=== PATIENT | female | born 1985 | race Caucasian/White ===

== ENCOUNTER 2019-02-06 08:38 | Emergency (ER) | payer BC ==
--- NOTE | 2019-02-06 09:07 | EDM.PDOC ---
ED HPI GENERAL MEDICAL PROBLEM - General Chief Complaint: Syncope Stated Complaint: SYNCOPE Time Seen by Provider: 02/06/19 08:40 Source of Information: Reports: Patient History Limitations: Reports: No Limitations - History of Present Illness INITIAL COMMENTS - FREE TEXT/NARRATIVE: 33 YO WF presents to ER complaining of syncopal episode which occurred this am. Pt reports she woke feeling drowsy and took her dog out for a walk. Pt states she began to feel nauseated and felt like she was gonna have a bowel movement at which time she went to the bathroom and passed out. Pt was found by her friend who called EMS. Pt reports she had a similar episode 2 weeks ago with some amnesia. Pt has long standing history of bipolar, anxiety and IBS and was recently started on Seroquel. Pt also takes Lamictal, Benadryl for sleep and Ativan for anxiety. Pt reports she has felt more dizzy/lightheaded since starting Seroquel. Pt denies shortness of breath, chest pain, diaphoresis, vomiting or fever/chills. Pt reports she has a mild frontal headache which began last night before bedtime. Onset: Today Onset Date: 02/06/19 Onset Time: 06:00 Duration: Constant, Improving, Waxing/Waning Location: Reports: Head, Generalized Quality: Reports: Ache Severity: Mild Improves with: Reports: None Worsens with: Reports: None Associated Symptoms: Reports: No Other Symptoms, Headaches, Nausea/Vomiting, Syncope, Weakness. Denies: Confusion, Chest Pain, Cough, cough w sputum, Fever/ Chills, Rash, Shortness of Breath head frontal Pain Score (Numeric/FACES): 4 - Related Data Allergies Allergy/AdvReac Type Severity Reaction Status Date / Time No Known Allergies Allergy Verified 02/06/19 09:27 Home Meds: Home Meds Fluticasone Propionate [Flonase] 1 - 2 sprays NS DAILY 02/06/19 [History] Levonorgestrel-Ethin Estradiol [Aviane] 1 tab PO DAILY 02/06/19 [History] Loperamide HCl [Imodium A-D] 2 mg PO BID PRN 02/06/19 [History] Multivitamins with Iron [Daily Finn with Iron] 1 each PO DAILY 02/06/19 [History ] QUEtiapine Fumarate [Quetiapine Fumarate] 50 mg PO BEDTIME 02/06/19 [History] RX: Loratadine 10 mg PO DAILY 02/06/19 [History] RX: Naproxen 375 mg PO BID PRN 02/06/19 [History] Rizatriptan Benzoate [Rizatriptan] 10 mg PO DAILY PRN 02/06/19 [History] hydrOXYzine HCl [Atarax] 25 mg PO BID PRN 02/06/19 [History] lamoTRIgine [Lamotrigine] 200 mg PO BEDTIME 02/06/19 [History] ED ROS GENERAL - Review of Systems Review Of Systems: See Below Constitutional: Reports: Malaise, Weakness HEENT: Reports: Vision Change Respiratory: Reports: No Symptoms Cardiovascular: Reports: No Symptoms Endocrine: Reports: No Symptoms GI/Abdominal: Reports: Nausea : Reports: No Symptoms Musculoskeletal: Reports: No Symptoms Skin: Reports: No Symptoms Neurological: Reports: Dizziness, Headache, Syncope, Weakness. Denies: Confusion, Numbness, Paresthesia, Tingling, Tremors, Trouble Speaking, Difficulty Walking, Change in Speech, Gait Disturbance Psychiatric: Reports: No Symptoms Hematologic/Lymphatic: Reports: No Symptoms Immunologic: Reports: No Symptoms - Physical Exam Exam: See Below Exam Limited By: No Limitations General Appearance: Alert, WD/WN, No Apparent Distress Eye Exam: Bilateral Eye: EOMI, PERRL Ears: Normal External Exam, Normal Canal, Hearing Grossly Normal, Normal TMs Nose: Normal Inspection, Normal Mucosa, No Blood Throat/Mouth: Normal Inspection, Normal Lips, Normal Teeth, Normal Gums, Normal Oropharynx, Normal Voice, No Airway Compromise Head Exam: Atraumatic, Normocephalic Neck: Normal Inspection, Supple, Non-Tender, Full Range of Motion Respiratory/Chest: No Respiratory Distress, Lungs Clear, Normal Breath Sounds, No Accessory Muscle Use, Chest Non-Tender Cardiovascular: Normal Peripheral Pulses, Regular Rate, Rhythm, No Edema, No Gallop, No JVD, No Murmur, No Rub GI/Abdominal: Normal Bowel Sounds, Soft, Non-Tender, No Organomegaly, No Distention, No Abnormal Bruit, No Mass Neuro Exam (Abbreviated): Alert, Oriented, CN II-XII Intact, Normal Cognition, Normal Gait, Normal Reflexes, No Motor/Sensory Deficits Back Exam: Normal Inspection, Full Range of Motion, NT Extremities: Normal Inspection, Normal Range of Motion, Non-Tender, No Pedal Edema, Normal Capillary Refill Psychiatric: Normal Affect, Normal Mood Skin Exam: Warm, Dry, Intact, Normal Color, No Rash EKG INTERPRETATION EKG Date: 02/06/19 Time: 09:18 Rhythm: NSR Rate (Beats/Min): 60 [place]: Normal P-Wave: Present QRS: Normal ST-T: Normal QT: Normal Comparison: NA - No Prior EKG Course - Vital Signs Last Recorded V/S: Last Vital Signs Temp 36.8 C 02/06/19 08:40 Pulse 77 02/06/19 08:40 Resp 17 02/06/19 08:40 BP 122/80 02/06/19 08:40 Pulse Ox 98 02/06/19 08:40 - Orders/Labs/Meds Orders: Active Orders 24 hr Category Date Time Status Orthostatic Vital Signs [RC] ASDIRECTED Care 02/06/19 08:55 Active UA W/MICROSCOPIC [URIN] Stat Lab 02/06/19 08:54 Ordered Ketorolac [Toradol] Med 02/06/19 09:42 Once 30 mg IVPUSH ONETIME ONE Sodium Chloride 0.9% @ 999 MLS/HR (1000ml) Med 02/06/19 09:36 Ordered Sodium Chloride 0.9% [Normal Saline] 1,000 ml IV .BOLUS Medication Orders Sodium Chloride (Normal Saline) 1,000 mls @ 999 mls/hr IV .BOLUS ONE Stop: 02/06/19 10:36 Labs: Laboratory Tests 02/06/19 02/06/19 Range/Units 08:45 08:45 WBC 5.48 (5.00-10.00) 10^3/uL RBC 4.06 (3.80-5.50) 10^6/uL Hgb 12.7 (12.0-16.0) g/dL Hct 37.2 (37.0-47.0) % MCV 91.6 (82.0-92.0) fL MCH 31.3 H (27.0-31.0) pg MCHC 34.1 (32.0-36.0) g/dL RDW 12.3 (11.5-14.5) % Plt Count 238 (150-400) 10^3/uL MPV 10.1 (7.4-10.4) fL Immature Gran % (Auto) 0.2 (0.0-5.0) % Neut % (Auto) 60.9 (50.0-70.0) % Lymph % (Auto) 29.0 (20.0-40.0) % [place] % (Auto) 6.8 (2.0-8.0) % Eos % (Auto) 2.7 (1.0-3.0) % Baso % (Auto) 0.4 (0.0-1.0) % Immature Gran # (Auto) 0.01 (0.00-0.50) 10^3/uL Neut # (Auto) 3.34 (2.50-7.00) 10^3/uL Lymph # (Auto) 1.59 (1.00-4.00) 10^3/uL [place] # (Auto) 0.37 (0.10-0.80) 10^3/uL Eos # (Auto) 0.15 (0.10-0.30) 10^3/uL Baso # (Auto) 0.02 (0.00-0.10) 10^3/uL Sodium 143 (136-145) mmol/L Potassium 4.2 (3.3-5.3) mmol/L Chloride 105 (98-115) mmol/L Carbon Dioxide 22.5 (21.0-32.0) mmol/L Anion Gap 19.7 H (5-15) mmol/L BUN 7 (6-25) mg/dL Creatinine 0.57 (0.51-1.17) mg/dL Est Cr Clr Drug Dosing 105.31 mL/min Estimated GFR (MDRD) > 60 mL/min Glucose 86 (75 - 99) mg/dL Calcium 8.8 (8.7-10.3) mg/dL Total Bilirubin 0.4 (0.2-1.0) mg/dL AST 18 (15-37) U/L ALT 13 (12-78) U/L Alkaline Phosphatase 41 L (46-116) IU/L Creatine Kinase 105 (26-276) U/L CK-MB (CK-2) < 0.50 (0.00-4.30) ng/mL Troponin I 0.06 (0.00-0.070) ng/mL Total Protein 7.2 (6.4-8.2) g/dL Albumin 3.41 (3.00-4.80) g/dL HCG, Qual Negative (NEGATIVE) Meds: Medications Generic Name Dose Route Start Last Admin Trade Name Freq PRN Reason Stop Dose Admin Sodium Chloride 1,000 mls @ 999 mls/hr 02/06/19 09:36 Normal Saline IV 02/06/19 10:36 .BOLUS ONE Discontinued Medications Generic Name Dose Route Start Last Admin Trade Name Justin PRN Reason Stop Dose Admin Ondansetron HCl 4 mg 02/06/19 09:36 Zofran IVPUSH 02/06/19 09:37 ONETIME ONE - Radiology Interpretation Free Text/Narrative:: CT head- NAD - Re-Assessments/Exams Free Text/Narrative Re-Assessment/Exam: 02/06/19 09:42 orthostatics- Negative Departure - Departure Time of Disposition: 09:45 Disposition: Home, Self-Care 01 Condition: Good Clinical Impression: Syncope Qualifiers: Encounter type: initial encounter - Discharge Information Instructions: Syncope, [id number] Referrals: Eric Watters PA-C [Primary Care Provider] - Forms: ED Department Discharge Additional Instructions: 1. Discharge home 2. rest/plenty of fluids 3. follow up with PCP for neuropsych referral and medication adjustment as needed 4. off work x 3 days 5. return to ER for worsening symptoms - My Orders Last 24 Hours: My Active Orders 02/06/19 08:54 UA W/MICROSCOPIC [URIN] Stat 02/06/19 08:55 Orthostatic Vital Signs [RC] ASDIRECTED 02/06/19 09:36 Sodium Chloride 0.9% @ 999 MLS/HR (1000ml) Sodium Chloride 0.9% [Normal Saline] 1,000 ml IV .BOLUS 02/06/19 09:42 Ketorolac [Toradol] 30 mg IVPUSH ONETIME ONE - Assessment/Plan Last 24 Hours: My Active Orders 02/06/19 08:54 UA W/MICROSCOPIC [URIN] Stat 02/06/19 08:55 Orthostatic Vital Signs [RC] ASDIRECTED 02/06/19 09:36 Sodium Chloride 0.9% @ 999 MLS/HR (1000ml) Sodium Chloride 0.9% [Normal Saline] 1,000 ml IV .BOLUS 02/06/19 09:42 Ketorolac [Toradol] 30 mg IVPUSH ONETIME ONE Assessment:: 1. Syncope- vasovagal vs medication induced Plan: 1. Discharge home 2. rest/plenty of fluids 3. follow up with PCP for neuropsych referral and medication adjustment as needed 4. off work x 3 days 5. return to ER for worsening symptoms
--- NOTE | 2019-02-06 09:35 | CT ---
[id number] CT/CT Head WO IV EXAM: CT Head WO IV CLINICAL DATA: SYNCOPE COMPARISON: NO PREVIOUS SIMILAR EXAM IS AVAILABLE FOR COMPARISON. FINDINGS: There is no mass or mass effect. There is no hemorrhage or hydrocephalus. There are no extra-axial fluid collections. There are no sites of abnormal attenuation. IMPRESSION: NO PLAIN CT EVIDENCE OF ACUTE INTRACRANIAL PROCESS. Slava Mclaughlin MD 02/06/19 0934 Thank you for allowing us to participate in the care of your patient.
[2019-02-06] MEDS ORDERED: Ondansetron 4 MG/2 ML SDV IVPUSH ONE (09:36)
[2019-02-06] MEDS ORDERED: Sodium Chloride 0.9% 1,000 ML IV ONE (09:36)
[2019-02-06 09:37] LABS: ANION GAP 19.7 mmol/L (5-15); CHLORIDE,CL 105 mmol/L (98-115); SODIUM,NA 143 mmol/L (136-145)
[2019-02-06] MEDS ORDERED: Ketorolac 30 MG/ML SDV IVPUSH ONE (09:42)
== END 2019-02-06 11:06 | disposition home or self-care (01) ==
LOC: KA.ED 08:38
DX: R55 Syncope and collapse (principal); Z79.899 Other long term (current) drug therapy
CPT/HCPCS: 70450; 80053; 81001; 82550; 82553; 84484; 84703; 85025; 93005; 96361; 96374; 96375; 99284; J1885; J2405; J7030

== ENCOUNTER 2019-06-15 14:40 | Emergency (ER) | payer BC ==
[2019-06-15] MEDS ORDERED: Ketorolac 60 MG/2 ML SDV IM ONE (15:34)
--- NOTE | 2019-06-15 15:34 | EDM.PDOC ---
ED HPI GENERAL MEDICAL PROBLEM - General Chief Complaint: Neck Problem Stated Complaint: NECK PAIN Time Seen by Provider: 06/15/19 15:00 Source of Information: Reports: Patient History Limitations: Reports: No Limitations - History of Present Illness INITIAL COMMENTS - FREE TEXT/NARRATIVE: 34 YO WF complaining of left sided neck pain which began this am after waking up. Pt reports she was doing a lot of cleaning and lifting of trash and boxes yesterday and thinks she may have aggravated her neck in the process. Pt has had history of cervical strain in the past and states this pain is similar. Pt complaining of left trapezius with mild radiation to shoulder. Pt denies any weakness. Onset: Today Location: Reports: Neck Quality: Reports: Ache Severity: Mild Improves with: Reports: None Worsens with: Reports: None Associated Symptoms: Reports: No Other Symptoms left shoulder/neck Pain Score (Numeric/FACES): 7 - Related Data Allergies Allergy/AdvReac Type Severity Reaction Status Date / Time No Known Allergies Allergy Verified 06/15/19 15:26 Home Meds: Home Meds Fluticasone Propionate [Flonase] 1 - 2 sprays NS DAILY 02/06/19 [History] Levonorgestrel-Ethin Estradiol [Aviane] 1 tab PO DAILY 02/06/19 [History] Loperamide HCl [Imodium A-D] 2 mg PO BID PRN 02/06/19 [History] Multivitamins with Iron [Daily Finn with Iron] 1 each PO DAILY 02/06/19 [History ] Naproxen 375 mg PO BID PRN 02/06/19 [History] QUEtiapine Fumarate [Quetiapine Fumarate] 50 mg PO BEDTIME 02/06/19 [History] Rizatriptan Benzoate [Rizatriptan] 10 mg PO DAILY PRN 02/06/19 [History] hydrOXYzine HCl [Atarax] 25 mg PO BID PRN 02/06/19 [History] lamoTRIgine [Lamotrigine] 200 mg PO BEDTIME 02/06/19 [History] Cyclobenzaprine [Flexeril] 10 mg PO TID PRN #15 tab 06/15/19 [Rx] Ibuprofen [Motrin] 600 mg PO Q6H PRN #20 tab 06/15/19 [Rx] Past Medical History HEENT History: Reports: Impaired Vision Respiratory History: Reports: Other (See Below) Other Respiratory History: seasonal allergies Gastrointestinal History: Reports: Irritable Bowel Syndrome Neurological History: Reports: Migraines Psychiatric History: Reports: Anxiety, Depression Endocrine/Metabolic History: Reports: Obesity/BMI 30+ Social & Family History - Family History Family Medical History: Noncontributory ED ROS GENERAL - Review of Systems Review Of Systems: See Below Constitutional: Reports: No Symptoms HEENT: Reports: No Symptoms Respiratory: Reports: No Symptoms Cardiovascular: Reports: No Symptoms Endocrine: Reports: No Symptoms GI/Abdominal: Reports: No Symptoms : Reports: No Symptoms Musculoskeletal: Reports: Neck Pain Skin: Reports: No Symptoms Neurological: Reports: No Symptoms Psychiatric: Reports: No Symptoms Hematologic/Lymphatic: Reports: No Symptoms ED EXAM, UPPER BACK/NECK PAIN - Physical Exam Exam: See Below Exam Limited By: No Limitations General Appearance: Alert, WD/WN, No Apparent Distress Nose Exam: Normal Inspection, Normal Mucousa, No Blood Throat/Mouth Exam: Normal Inspection, Normal Lips, Normal Teeth, Normal Gums, Normal Oropharynx, Normal Voice, No Airway Compromise Head Exam: Atraumatic, Normocephalic Neck Exam: Normal Alignment, Muscle Spasm, Painful Range of Motion, Paraspinous Muscle Tender, Tenderness, Tender Lateral Nexus Criteria: No: Posterior, Midline Cervical Tenderness, Evidence of Intoxication, Altered Level of Consciousness, Focal Neurological Deficit, Painful Distraction Injuries Cardiovascular/Respiratory: Regular Rate, Rhythm, No M/R/G, Normal Peripheral Pulses, No JVD, Normal Breath Sounds, No Respiratory Distress GI/Abdominal: Normal Bowel Sounds, Soft, Non-Tender, No Organomegaly, No Distention, No Abnormal Bruit, No Mass Back Exam: Normal Inspection, Full Range of Motion, NT Extremities: Normal Inspection, Normal Range of Motion, Non-Tender, No Pedal Edema, Normal Capillary Refill Neurologic: video game creator II-XII nml As Tested, No Motor/Sensory Deficits, Alert, Normal Mood/Affect, Oriented x 3 Psychiatric: Normal Affect, Normal Mood Skin Exam: Normal Color, Warm/Dry Lymphatic: No Adenopathy Course - Vital Signs Last Recorded V/S: Last Vital Signs Temp 35.5 C 06/15/19 14:45 Pulse 59 L 06/15/19 14:45 Resp 20 06/15/19 14:45 BP 110/77 06/15/19 14:45 Pulse Ox 99 06/15/19 14:45 - Orders/Labs/Meds Orders: Active Orders 24 hr Category Date Time Status Cervical Spine 2V or 3V [CR] Stat Exams 06/15/19 15:16 Ordered Meds: Medications Discontinued Medications Generic Name Dose Route Start Last Admin Trade Name Freq PRN Reason Stop Dose Admin Cyclobenzaprine HCl 30 mg 06/15/19 15:52 Flexeril PO 06/15/19 15:53 ONETIME ONE Ibuprofen 2,400 mg 06/15/19 15:52 Motrin PO 06/15/19 15:53 ONETIME ONE Ketorolac Tromethamine 60 mg 06/15/19 15:34 06/15/19 15:52 Toradol IM 06/15/19 15:35 60 mg ONETIME ONE Administration - Radiology Interpretation Free Text/Narrative:: C-spine- straightening of cervical lordosis Departure - Departure Time of Disposition: 15:50 Disposition: Home, Self-Care 01 Condition: Good Clinical Impression: Cervical strain, acute Qualifiers: Encounter type: initial encounter Qualified Code(s): S16.1XXA - Strain of muscle, fascia and tendon at neck level, initial encounter - Discharge Information Prescriptions: Cyclobenzaprine [Flexeril] 10 mg PO TID PRN #15 tab PRN Reason: Muscle Spasm Ibuprofen [Motrin] 600 mg PO Q6H PRN #20 tab PRN Reason: Pain Instructions: Cervical Sprain, [id number] Referrals: Melanie Johns PA-C [Primary Care Provider] - Forms: ED Department Discharge Additional Instructions: 1. discharge home 2. Motrin 600mg PO Q6 x 5 days 3. Flexeril 10mg PO TID PRN 4. follow up with PCP for further evaluation and treatment 5. return to ER for worsening symptoms 6. work excuse for 2 days - My Orders Last 24 Hours: My Active Orders 06/15/19 15:16 Cervical Spine 2V or 3V [CR] Stat - Assessment/Plan Last 24 Hours: My Active Orders 06/15/19 15:16 Cervical Spine 2V or 3V [CR] Stat Assessment:: 1. cervical strain Plan: 1. discharge home 2. Motrin 600mg PO Q6 x 5 days 3. Flexeril 10mg PO TID PRN 4. follow up with PCP for further evaluation and treatment 5. return to ER for worsening symptoms 6. work excuse for 2 days
[2019-06-15] MEDS ORDERED: Ibuprofen 600 MG Tab PO ONE (15:52)
[2019-06-15] MEDS ORDERED: Cyclobenzaprine 10 MG Tab PO ONE (15:52)
--- NOTE | 2019-06-15 16:09 | CR ---
[id number] RAD/RAD Cervical Spine 2-3V EXAM: CERVICAL SPINE 3 VIEWS INDICATION: PAIN. COMPARISON: None. DISCUSSION: Mild straightening of the cervical lordosis. The prevertebral soft tissues are normal in thickness. The disc heights are maintained without significant degenerative findings. IMPRESSION: 1. Negative exam. Christian Jackson MD 06/15/19 2728 Thank you for allowing us to participate in the care of your patient.
== END 2019-06-15 16:05 | disposition home or self-care (01) ==
LOC: KA.ED 14:40
DX: S16.1XXA Strain of muscle, fascia and tendon at neck level, initial encounter (principal); F32.9 Major depressive disorder, single episode, unspecified; G43.909 Migraine, unspecified, not intractable, without status migrainosus; E66.9 Obesity, unspecified; Z68.25 Body mass index [BMI] 25.0-25.9, adult; Z79.899 Other long term (current) drug therapy; X50.9XXA Other and unspecified overexertion or strenuous movements or postures, initial encounter; Y93.89 Activity, other specified
CPT/HCPCS: 72040; 96372; 99283; J1885